=== PATIENT | female | born 2000 | race Caucasian/White ===

== ENCOUNTER 2024-12-31 13:53 | Outpatient (CLI) | payer OTHER | END 2024-12-31 14:46 | disposition home or self-care (01) | LOC: NST 13:53 | PROVIDERS: ATTEND Obstetrics & Gynecology Gynecology | DX: Z34.83 Encounter for supervision of other normal pregnancy, third trimester (principal) ==

== ENCOUNTER 2025-02-22 17:12 | Outpatient (CLI) | payer OTHER ==
[~2025-02-22 17:12] MED LIST: PRENATAL TABLE1 EAC1 PO
[2025-02-22 17:23] VITALS: BP 113/64
== END 2025-02-22 18:07 | disposition home or self-care (01) ==
LOC: NST 17:12
PROVIDERS: ATTEND Obstetrics & Gynecology Gynecology
DX: Z34.83 Encounter for supervision of other normal pregnancy, third trimester (principal)

== ENCOUNTER 2025-02-23 12:51 | Inpatient (IN) | payer OTHER ==
[~2025-02-23] VITALS: Ht 157.5 cm; Wt 3.2 kg
[2025-02-23 14:03] VITALS: BP 110/60
[2025-02-23 14:20] LABS: URINE APPEARANCE Cloudy; URINE BACTERIA 2219.9 uL (0.0-1933); URINE BILIRRUBIN Negative (NEGATIVE); URINE BLOOD Negative; URINE COLOR Yellow; URINE EPITHELIAL CELLS 125.8 uL (0.0-38.8); URINE GLUCOSE Negative (NEGATIVE); URINE KETONE Negative (NEGATIVE); URINE LEUKOCYTE Small; URINE NITRATE Negative; URINE PROTEIN Negative (NEGATIVE); URINE RBC 4.8 uL (0.0-20.8); URINE UROBILINOGEN 1.0 E.U./dl; URINE WBC 41.5 uL (0.0-23.2)
[2025-02-23 14:21] LABS: BASO % 0.2 % (0.1-1.2); EOS # 0.06 (0.04-0.54); EOS % 0.6 % (0.7-7.0); LYMPH # 1.63 (1.18-3.74); LYMPH % 16.4 % (19.3-53.1); MEAN PLATELET VOLUME 11.00 fl (9.4-12.4); MONO # 0.43 (0.24-0.82); MONO % 4.3 % (4.7-12.5); NEUT # 7.68 (1.56-6.13); NEUT % 77.5 % (34.0-71.1); RED CELL DISTRIBUTION WIDTH 12.5 % (11.6-14.4)
[2025-02-23] MEDS ORDERED: RINGERS SOLUTION,LACTATED 1,000 ML IV SCH (14:30)
[2025-02-23] MEDS ORDERED: CITRIC ACID/SODIUM CITRATE 30 ML BLIST.PACK PO SCH (14:30)
[2025-02-23] MEDS ORDERED: CEFAZOLIN SODIUM 1,000 MG VIAL IV SCH (14:30)
[2025-02-23 14:39] LABS: INR 0.97
[2025-02-23 14:51] LABS: URINE CAST 0.14 uL (0.0-1.40)
[2025-02-23 14:52] LABS: TYPE CELLS SQUAMOUS
[2025-02-23 15:18] LABS: ALT/SGPT 157.0 U/L (12-78); AST/SGOT 92.0 U/L (15-37); BILIRUBIN TOTAL 0.55 mg/dL (0.3-1.2); BUN CREA RATIO 15.0 (7.0-25.0); CREATININE SERUM 0.54 mg/dL (0.55-1.02); GFR 136.47; GLOBULINA 3.7 G/DL (2.4-3.5); GLUCOSE FASTING 71.0 mg/dL (65-100); OSMOLALITY SERUM 271.0 MOSM/KG (275-295)
[2025-02-23 15:30] VITALS: BP 91/60
[2025-02-23 19:40] VITALS: BP 97/60
[2025-02-23 23:18] VITALS: BP 99/64
[2025-02-23] MEDS ORDERED: ONDANSETRON HCL 2 MG/ML VIAL ONE (23:32)
[2025-02-24] MEDS ORDERED: ONDANSETRON HCL 2 MG/ML VIAL IV PRN (00:15)
[2025-02-24 03:19] VITALS: BP 89/51
[2025-02-24 06:52] VITALS: BP 92/53; O2SAT 98
[2025-02-24] MEDS ORDERED: OXYTOCIN 10 UNITS/ML VIAL ONE (09:21)
[2025-02-24] MEDS ORDERED: ERYTHROMYCIN BASE OPHT 1GM EACH TUBE OP ONE (09:21)
[2025-02-24] MEDS ORDERED: CITRIC ACID/SODIUM CITRATE 30 ML BLIST.PACK PO ONE (09:28)
[2025-02-24] MEDS ORDERED: MORPHINE SULFATE 4 MG/ML VIAL IV ONE (12:55)
[2025-02-24] MEDS ORDERED: KETOROLAC TROMETHAMINE 30 MG VIAL ONE (13:33)
[2025-02-24] MEDS ORDERED: KETOROLAC TROMETHAMINE 30 MG VIAL IV ONE (13:45)
[2025-02-24 14:05] VITALS: BP 96/67
[2025-02-24] MEDS ORDERED: RINGERS SOLUTION,LACTATED 1,000 ML IV SCH (15:15)
[2025-02-24] MEDS ORDERED: MORPHINE SULFATE 4 MG/ML CARTRIDGE IV PRN (15:15)
[2025-02-24] MEDS ORDERED: OXYTOCIN 1,000 ML IV ONE (15:15)
[2025-02-24 15:51] VITALS: BP 102/61
[2025-02-24] MEDS ORDERED: SIMETHICONE 125 MG CAPSULE PO SCH (17:00)
[2025-02-24] MEDS ORDERED: GABAPENTIN 300 MG CAPSULE PO SCH (17:00)
[2025-02-24] MEDS ORDERED: ACETAMINOPHEN 500 MG GEL..CAP PO SCH (18:00)
[2025-02-24] MEDS ORDERED: ONDANSETRON HCL 2 MG/ML VIAL IV SCH (18:00)
[2025-02-24] MEDS ORDERED: KETOROLAC TROMETHAMINE 30 MG VIAL IV SCH (18:00)
[2025-02-24 20:00] VITALS: BP 95/60
[2025-02-25 01:53] VITALS: BP 101/65
[2025-02-25 06:17] LABS: BASO % 0.2 % (0.1-1.2); EOS # 0.03 (0.04-0.54); EOS % 0.2 % (0.7-7.0); LYMPH # 1.32 (1.18-3.74); LYMPH % 9.9 % (19.3-53.1); MEAN PLATELET VOLUME 11.30 fl (9.4-12.4); MONO # 0.60 (0.24-0.82); MONO % 4.5 % (4.7-12.5); NEUT # 11.29 (1.56-6.13); NEUT % 84.7 % (34.0-71.1); RED CELL DISTRIBUTION WIDTH 12.4 % (11.6-14.4)
[2025-02-25] MEDS ORDERED: OxyCODONE HCL 5 MG TABLET (ROXICODONE) PO PRN (08:00)
[2025-02-25] MEDS ORDERED: KETOROLAC TROMETHAMINE 10 MG TABLET PO SCH (08:00)
[2025-02-25 08:38] VITALS: BP 100/60
[2025-02-25] MEDS ORDERED: DOCUSATE SODIUM 100MG CAP PO SCH (09:00)
[2025-02-25 13:28] VITALS: BP 90/60
[2025-02-25 16:00] VITALS: BP 91/60
[2025-02-26 01:10] VITALS: BP 98/65
[2025-02-26 05:56] LABS: BASO % 0.2 % (0.1-1.2); EOS # 0.06 (0.04-0.54); EOS % 0.5 % (0.7-7.0); LYMPH # 1.25 (1.18-3.74); LYMPH % 9.6 % (19.3-53.1); MEAN PLATELET VOLUME 11.00 fl (9.4-12.4); MONO # 0.53 (0.24-0.82); MONO % 4.1 % (4.7-12.5); NEUT # 11.04 (1.56-6.13); NEUT % 84.8 % (34.0-71.1); RED CELL DISTRIBUTION WIDTH 12.7 % (11.6-14.4)
[2025-02-26 06:26] LABS: ALT/SGPT 111.0 U/L (12-78); AST/SGOT 67.0 U/L (15-37); BILIRUBIN TOTAL 0.51 mg/dL (0.3-1.2); BUN CREA RATIO 18.0 (7.0-25.0); GFR 172.85; GLOBULINA 3.0 G/DL (2.4-3.5); GLUCOSE FASTING 86.0 mg/dL (65-100); OSMOLALITY SERUM 279.0 MOSM/KG (275-295)
[2025-02-26 06:30] LABS: CREATININE SERUM 0.44 mg/dL (0.55-1.02)
[2025-02-26 08:57] VITALS: BP 96/64
== END 2025-02-26 15:00 | disposition home or self-care (01) | DRG 787 ==
LOC: LDR 12:51 → O/R 12:51 → LDR 14:11 → O/R 02-24 09:52 → OB/GYN 02-24 13:29
PROVIDERS: Obstetrics & Gynecology; ADMIT Obstetrics & Gynecology Gynecology; ATTEND Obstetrics & Gynecology Gynecology
PROC: 4A1HXCZ Monitoring of Products of Conception, Cardiac Rate, External Approach (ICD-10-PCS; 2025-02-23)
PROC: 10D00Z1 Extraction of Products of Conception, Low, Open Approach (ICD-10-PCS; principal; 2025-02-24 11:00)
DX: O32.1XX0 Maternal care for breech presentation, not applicable or unspecified (principal); O26.643 Intrahepatic cholestasis of pregnancy, third trimester; Z3A.38 38 weeks gestation of pregnancy; Z37.0 Single live birth